=== PATIENT | female | born 1950 | race African-American/Black ===

== ENCOUNTER → 2016-07-10 | Outpatient (CLI) | payer MEDICARE, MEDICAID ==
[~2016-07-10] MED LIST: AMLO10TA80 PO; ASPI81TA2 PO; ATOR20TA PO; CA C1TAB70 PO; HYDR25TA PO; LISI10TA5 PO
== END | disposition home or self-care (01) ==
LOC: RAD 11:10
PROVIDERS: ATTEND Neurological Surgery
DX: M47.817 Spondylosis without myelopathy or radiculopathy, lumbosacral region (principal); M43.26 Fusion of spine, lumbar region
CPT/HCPCS: 72114

== ENCOUNTER → 2016-09-07 | Outpatient (CLI) | payer MEDICARE, MEDICAID ==
[~2016-09-07] MED LIST changes: +ASPI-1160 PO; -ASPI81TA2 PO
== END | disposition home or self-care (01) ==
LOC: RAD 15:20
PROVIDERS: ATTEND Neurological Surgery
DX: M51.37 Other intervertebral disc degeneration, lumbosacral region (principal); M48.06 Spinal stenosis, lumbar region
CPT/HCPCS: 72114

== ENCOUNTER 2017-05-15 07:31 | Emergency (ER) | payer MEDICARE, MEDICAID ==
[~2017-05-15] VITALS: Ht 157.5 cm; Wt 81.0 kg
[~2017-05-15 07:31] MED LIST changes: -AMLO10TA80 PO; -CA C1TAB70 PO
[2017-05-15] MEDS ORDERED: PANT40TA4 PO (08:17)
[2017-05-15] MEDS ORDERED: FURO20TA4 PO (08:17)
[2017-05-15] MEDS ORDERED: CHOL500010 PO (08:17)
[2017-05-15] MEDS ORDERED: ACETAMINOPHEN 325MG TABLET PO STA (08:20)
[2017-05-15 08:36] LABS: CLARITY URINE CLOUDY (CLEAR); COLOR URINE YELLOW (YELLOW); KETONES URINE NEGATIVE (NEGATIVE); LEUKOCYTE ESTERASE URINE 1+ (NEGATIVE); NITRITE URINE NEGATIVE (NEGATIVE); OCCULT BLOOD URINE NEGATIVE (NEGATIVE); PH URINE 6.5 (4.5-8.0); PROTEIN URINE TRACE (NEGATIVE); SPECIFIC GRAVITY URINE 1.026 (1.005-1.030); UROBILINOGEN URINE 0.2 E.U./dL (0.2-1.0)
[2017-05-15 09:09] LABS: BASOPHILS % 1.9 % (0.0-2.0); EOSINOPHILS % 3.3 % (0.0-5.0); HEMATOCRIT. 36.4 % (36.0-48.0); HEMOGLOBIN. 12.1 g/dL (12.0-16.0); LYMPHOCYTES % 35.3 % (20.0-50.0); MEAN CORPUSCULAR HEMOGLOBIN 29.8 pg (28.0-32.0); MEAN CORPUSCULAR VOLUME 89.7 fL (81.0-99.0); MEAN PLATELET VOLUME 8.8 fl (7.4-10.4); NEUTROPHILS % 53.5 % (40.0-76.0); PLATELET 230 x1000/uL (130-400); RED BLOOD CELL COUNT 4.05 mill/uL (4.2-5.4); RED CELL DISTRIBUTION WIDTH 14.6 % (11.6-14.6)
[2017-05-15 09:16] LABS: CHLORIDE 107 mEq/L (98-107); INR 1.1; PROTHROMBIN TIME 11.1 sec (9.4-11.6)
[2017-05-15] MEDS ORDERED: ACETAMINOPHEN 325MG TABLET PO NR (13:48)
[2017-05-15 15:05] VITALS: BP 144/86
== END 2017-05-15 15:05 | disposition home or self-care (01) ==
LOC: ER 08:13
DX: N30.90 Cystitis, unspecified without hematuria (principal); E78.00 Pure hypercholesterolemia, unspecified; I10 Essential (primary) hypertension; Z90.710 Acquired absence of both cervix and uterus; Z79.82 Long term (current) use of aspirin
CPT/HCPCS: 36415; 74176; 80053; 81003; 83690; 85025; 85610; 87086; 99285